=== PATIENT | male | born 1980 | race Caucasian/White ===

== ENCOUNTER 2017-02-01 02:52 | Emergency (ER) | payer MEDICARE | END 2017-02-01 04:17 | disposition home or self-care (01) | LOC: D.ER 02:52 | DX: S01.552A Open bite of oral cavity, initial encounter (principal); X58.XXXA Exposure to other specified factors, initial encounter; Y93.89 Activity, other specified; Y92.89 Other specified places as the place of occurrence of the external cause; F17.200 Nicotine dependence, unspecified, uncomplicated ==

== ENCOUNTER 2017-02-09 03:38 | Emergency (ER) | payer MEDICARE | END 2017-02-09 05:00 | disposition home or self-care (01) | LOC: D.ER 03:38 | DX: K02.9 Dental caries, unspecified (principal) ==

== ENCOUNTER 2018-08-16 01:48 | Emergency (ER) | payer MEDICARE ==
[~2018-08-16] VITALS: Ht 182.9 cm; Wt 63.6 kg
[2018-08-16 02:16] VITALS: Ht 182.9 cm; Wt 63.6 kg
[2018-08-16] MEDS ORDERED: PENICILLIN V P500 MG PO (02:36)
[2018-08-16] MEDS ORDERED: TORADOL10 MG PO (02:36)
[2018-08-16 03:07] VITALS: BP 125/65
== END 2018-08-16 03:09 | disposition home or self-care (01) ==
LOC: D.ER 01:48
DX: K02.9 Dental caries, unspecified (principal); K04.7 Periapical abscess without sinus

== ENCOUNTER 2018-11-24 23:17 | Emergency (ER) | payer MEDICAID ==
[~2018-11-24] VITALS: Ht 182.9 cm; Wt 65.9 kg
[~2018-11-24 23:17] MED LIST: PENICILLIN V P500 MG PO; TORADOL10 MG PO
[2018-11-24 23:28] VITALS: Ht 182.9 cm; Wt 65.9 kg
[2018-11-24] MEDS ORDERED: TOPROL XL25 MG (23:38)
[2018-11-24] MEDS ORDERED: PROMACTA75 MG PO (23:38)
[2018-11-24 23:50] LABS: HEMATOCRIT 37.7 % (42.0-54.0); HEMOGLOBIN 12.8 g/dL (13.5-17.5); MCH 27.6 pg (26.0-34.0); MCV 81.3 fL (80.0-100.0); RBC 4.64 10x6/uL (4.20-6.10); RDW 14.6 % (11.5-14.5)
[2018-11-24 23:52] LABS: PLATELET COUNT 9 10x3/uL (130-400)
[2018-11-25 00:09] LABS: APTT 27.5 SECONDS (22.8-39.4); INR 1.13 (0.85-1.17); PROTIME 13.9 SECONDS (11.6-15.0)
[2018-11-25 00:13] LABS: ALBUMIN 3.4 g/dL (3.4-5.0); ALKALINE PHOSPHATASE 192 U/L (46-116); ALT (SGPT) 28 U/L (10-68); BILIRUBIN - TOTAL 0.81 mg/dL (0.2-1.3); CALC OSMOLALITY 280 mosm/kg (275-300); CALCIUM 9.2 mg/dL (8.5-10.1); CARBON DIOXIDE 29.4 mmol/L (21.0-32.0); CHLORIDE - SERUM 105 mmol/L (98-107); CREATININE - SERUM 0.5 mg/dL (0.6-1.3); GLUCOSE 99 mg/dL (74-106); POTASSIUM - SERUM 4.2 mmol/L (3.5-5.1); PROTEIN - SERUM 6.4 g/dL (6.4-8.2); SODIUM 139 mmol/L (136-145); UREA NITROGEN 20 mg/dL (7-18); eGFR NON AFRICAN AMERICAN > 90 mL/min (90-120)
[2018-11-25 00:20] LABS: LYMPHOCYTES 30 % (15-50); MONOCYTES 15 % (2-11); NEUTROPHILS 55 % (40-80); PLATELET ESTIMATE DECREASED; PLATELET MORPHOLOGY GIANT PLTS PRESENT
[2018-11-25 00:28] LABS: CKMB 0.5 U/L (0.0-3.6); CREATINE KINASE 33 UL (21-232); MAGNESIUM - SERUM 1.6 mg/dL (1.8-2.4); TROPONIN-I < 0.017 ng/mL (0.000-0.060)
[2018-11-25] MEDS ORDERED: NAPROSYN500 MG PO (00:53)
[2018-11-25] MEDS ORDERED: ULTRAM50 MG PO (00:53)
[2018-11-25 01:30] VITALS: BP 118/73
== END 2018-11-25 01:20 | disposition home or self-care (01) ==
LOC: D.ER 23:17
PROVIDERS: Family Medicine
DX: I31.9 Disease of pericardium, unspecified (principal); R07.89 Other chest pain; D69.3 Immune thrombocytopenic purpura